=== PATIENT | male | born 1990 | race Caucasian/White ===

== ENCOUNTER 2024-04-06 09:18 | Emergency (ER) | payer SELFPAY ==
[2024-04-06 10:00] LABS: HEMATOCRIT 45.4 % (42.0-52.0); HEMOGLOBIN 15.7 gm/dl (14.0-18.0); MEAN CORPUSCULAR HGB CONC 34.6 g/dl (32.0-36.0); MEAN CORPUSCULAR VOLUME 83.9 fl (83.0-99.0); MEAN PLATELET VOLUME 9.8 fl (9.4-12.4); PLATELET COUNT,PLT 244 K/mm3 (150-400); RED BLOOD CELL COUNT 5.41 M/mm3 (4.52-5.90); WHITE BLOOD CELL COUNT,WBC 13.21 K/mm3 (3.9-11.3)
[2024-04-06] MEDS: Morphine 2 MG/ML SYRINGE IVPUSH PRN (10:11)
[2024-04-06] MEDS: Sodium Chloride 0.9% 1,000 ML IV ONE (10:12)
[2024-04-06 10:14] LABS: INR 1.04
[2024-04-06 10:15] LABS: A/G RATIO 1.1 (1-2); ALANINE AMINOTRANSFERASE,ALT 31 U/L (16-63); ALBUMIN 3.5 g/dl (3.4-5.0); ALKALINE PHOSPHATASE 94 U/L (46-116); ANION GAP 16.7 (5-15); ASPARTATE AMNIOTRANSFERASE,AST 25 U/L (15-37); BILIRUBIN TOTAL 0.6 mg/dL (0.2-1.0); BLOOD UREA NITROGEN,BUN 16 mg/dL (7-18); BUN/CREATININE RATIO 13.3 (14-18); CALCIUM 8.5 mg/dL (8.5-10.1); CARBON DIOXIDE,CO2 23 mEq/L (21-32); CHLORIDE,CL 102 mEq/L (98-107); CREATININE 1.2 mg/dL (0.7-1.3); ESTIMATED GFR 81 mL/min (>60); GLUCOSE RANDOM 131 mg/dL (70-99); POTASSIUM,K 3.7 mEq/L (3.5-5.1); PROTEIN TOTAL,TP 6.8 g/dl (6.4-8.2); PTT,PARTIAL THROMBOPLSTIN TIME 23.7 SECONDS (21.7-31.4); SODIUM,NA 138 mEq/L (136-145)
[2024-04-06] MEDS: Metoclopramide 10 MG/2 ML SDV IVPUSH ONE ×2 (10:29→15:43)
[2024-04-06] MEDS: HYDROmorphone 1 MG/ML Syringe IVPUSH ONE ×2 (10:29→15:43)
[2024-04-06 10:38] LABS: BAND PERCENT MAN 2 % (0-10); BASOPHILS PERCENT MAN 0 (0.2-1.2); EOSINOPHILS PERCENT MAN 2 % (0.8-7.0); LYMPHOCYTES % ATYPICAL MANUAL 3 %; LYMPHOCYTES PERCENT MAN 15 % (20-40); MONOCYTES PERCENT MAN 2 % (2-10); PLATELET COUNT ESTIMATE ADEQUATE
[2024-04-06] MEDS: Lidocaine 1% with EPINEPHrine 1:100,000 20 ML MDV INJECT ONE (10:55)
[2024-04-06] MEDS ORDERED: Lidocaine 1% with EPINEPHrine 1:100,000 20 ML MDV ONE (10:57)
[2024-04-06] MEDS ORDERED: ceFAZolin 1 GM Vial IM ONE (12:01)
[2024-04-06] MEDS: ceFAZolin 1 GM in Sodium Chloride 0.9% 50 ML IV ONE (12:20)
[2024-04-06] MEDS: Diphtheria,Pertussis(Acell),Tetanus Vaccine 0.5 ML Syringe IM ONE (12:21)
[2024-04-06] MEDS: Iopamidol 755 Mg/ML 100 ML Bottle IVPUSH ONE (13:04)
[2024-04-06] MEDS: Lactated Ringers 1,000 ML IV SCH (13:08)
[2024-04-06] MEDS ORDERED: Sodium Chloride 0.9% 100 ML IV SCH (13:15)
[2024-04-06] MEDS ORDERED: Lidocaine 1% 10 ML MDV INJECT ONE (14:13)
== END 2024-04-06 15:40 ==
LOC: JD.ED 09:18
DX: S02.101A Fracture of base of skull, right side, initial encounter for closed fracture (principal); S22.22XA Fracture of body of sternum, initial encounter for closed fracture; S01.01XA Laceration without foreign body of scalp, initial encounter; Z23 Encounter for immunization; V89.2XXA Person injured in unspecified motor-vehicle accident, traffic, initial encounter
CPT/HCPCS: 12004; 36415; 70450; 70486; 70496; 70498; 71045; 71260; 72125; 72128; 72131; 74177; 80053; 83690; 85007; 85027; 85610; 85730; 86850; 86900; 86901; 90471; 90715; 93005; 96361; 96365; 96375; 99285; J0690; J1171; J2270; J2765; J3490; J7030; J7120; Q9967; 12011; 93010